=== PATIENT | female | born 1960 | race Two or more races ===

== ENCOUNTER → 2024-06-01 | Outpatient (CLI) | payer MEDICARE, MEDICAID, SELFPAY ==
--- NOTE | 2024-06-01 08:36 | XR_ITS ---
Examination: Thoracic spine 3 views Technique one AP lateral coned lateral upper dorsal spine 3 views Exam date and time: June 01, 2024 0850 hours INDICATIONS: Mid back pain for months. FINDINGS: Prominent osteopenia Moderate diffuse thoracic degenerative disease Prominent thoracic spondylosis No acute fracture IMPRESSION: Moderate diffuse thoracic degenerative disc disease
--- NOTE | 2024-06-01 08:36 | XR_ITS ---
Examination: Cervical spine 3 views TECHNIQUE: AP lateral coned AP odontoid cervical spine 3 views Exam date and time: June 01, 2024 0846 hours INDICATIONS: Left-sided neck pain beginning 4 months ago FINDINGS: 3 mm anterolisthesis C3 on C4 Moderate degenerative disc disease C4-C5, C6-C7 No cervical fracture Intact odontoid Soft tissue vascular carotid calcification IMPRESSION: Moderate degenerative disc disease C4-C5, C6-C7, consider oblique film cervical spine follow-up
== END | disposition home or self-care (01) ==
PROVIDERS: PCP Physician Assistant; Referring Provider Physician Assistant; Visit Provider Physician Assistant
DX: M50.321 Other cervical disc degeneration at C4-C5 level (principal); M51.34 Other intervertebral disc degeneration, thoracic region
CPT/HCPCS: 72040; 72070

== ENCOUNTER 2024-06-14 11:00 | Outpatient (RCR) | payer MEDICARE, MEDICAID, SELFPAY ==
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
== END 2024-06-27 23:59 | disposition home or self-care (01) ==
LOC: CPTX 11:00
PROVIDERS: PCP Orthopaedic Surgery Orthopaedic Trauma; Referring Provider Orthopaedic Surgery Orthopaedic Trauma; Visit Provider Orthopaedic Surgery Orthopaedic Trauma
DX: M25.512 Pain in left shoulder (principal); R53.1 Weakness; Z96.612 Presence of left artificial shoulder joint
CPT/HCPCS: 97162

== ENCOUNTER 2024-07-27 10:00 | Outpatient (RCR) | payer MEDICARE, MEDICAID, SELFPAY ==
--- NOTE | 2024-07-18 10:53 | PT.ODAYNRPT ---
PT Outpatient Daily Note OP Daily Note Outpatient Physical Therapy Treatment Date: 07/18/24 Visit Reasons: Pain in left shoulder Subjective: Pt c/o weak and stiff shoulder. Pt mentioned that she uses tries to use her shoulder as best she can but still notices it is weak. Objective: Please see flow sheet for ther ex list. Assessment: Pt demonstrates upper trap recruitment with AAROM in flexion and abduction, cues for correction. Plan: Continue with POC. Length of Time (minutes) of Treatment: 30 Minutes Procedure Charges Therapeutic Exercise 30 minutes: Yes
--- NOTE | 2024-07-20 10:48 | PT.ODAYNRPT ---
PT Outpatient Daily Note OP Daily Note Outpatient Physical Therapy Treatment Date: 07/20/24 Visit Reasons: Pain in left shoulder Subjective: A little L shoulder soreness after last visit Objective: See F/S for therex Assessment: Limited ER ROM and strength of L shoulder Plan: Continue per POC Length of Time (minutes) of Treatment: 30 Minutes Procedure Charges Therapeutic Exercise 30 minutes: Yes
--- NOTE | 2024-07-25 10:50 | PT.ODAYNRPT ---
PT Outpatient Daily Note OP Daily Note Outpatient Physical Therapy Treatment Date: 07/25/24 Visit Reasons: Pain in left shoulder Subjective: Pt reports progress is slow with R shoulder. Objective: Please see flow sheet for ther ex list. Assessment: Pt demonstrates poor cuff firing in external rotation. AAROM activities completed within available ROM. Plan: Continue with POC., Length of Time (minutes) of Treatment: 30 Minutes Procedure Charges Therapeutic Exercise 30 minutes: Yes
--- NOTE | 2024-07-27 11:46 | PT.ODAYNRPT ---
PT Outpatient Daily Note OP Daily Note Outpatient Physical Therapy Treatment Date: 07/27/24 Visit Reasons: Pain in left shoulder Subjective: A little L shoulder soreness after last visit Objective: See F/S for therex Assessment: Limited ER ROM and strength of L shoulder Plan: Continue per POC Length of Time (minutes) of Treatment: 30 Minutes Procedure Charges Therapeutic Exercise 30 minutes: Yes
== END 2024-07-28 23:59 | disposition home or self-care (01) ==
LOC: CPTX 10:00
PROVIDERS: PCP Orthopaedic Surgery Orthopaedic Trauma; Referring Provider Orthopaedic Surgery Orthopaedic Trauma; Visit Provider Orthopaedic Surgery Orthopaedic Trauma
DX: M25.512 Pain in left shoulder (principal); R53.1 Weakness; Z96.612 Presence of left artificial shoulder joint; I10 Essential (primary) hypertension
CPT/HCPCS: 97110

== ENCOUNTER 2024-08-10 10:30 | Outpatient (RCR) | payer MEDICARE, MEDICAID, SELFPAY ==
--- NOTE | 2024-08-01 11:16 | PT.ODAYNRPT ---
PT Outpatient Daily Note OP Daily Note Outpatient Physical Therapy Treatment Date: 08/01/24 Visit Reasons: Pain in left shoulder Subjective: A little L shoulder soreness after last visit Objective: See F/S for therex Assessment: Limited ER ROM and strength of L shoulder Plan: Continue per POC Length of Time (minutes) of Treatment: 30 Minutes Procedure Charges Therapeutic Exercise 30 minutes: Yes
--- NOTE | 2024-08-08 11:21 | PT.ODAYNRPT ---
PT Outpatient Daily Note OP Daily Note Outpatient Physical Therapy Treatment Date: 08/08/24 Visit Reasons: Pain in left shoulder Subjective: A little L shoulder soreness after last visit Objective: See F/S for therex Assessment: Limited ER ROM and strength of L shoulder Plan: Continue per POC Length of Time (minutes) of Treatment: 30 Minutes Procedure Charges Therapeutic Exercise 30 minutes: Yes
--- NOTE | 2024-08-10 11:21 | PT.ODAYNRPT ---
PT Outpatient Daily Note OP Daily Note Outpatient Physical Therapy Treatment Date: 08/10/24 Visit Reasons: Pain in left shoulder Subjective: Pt reports L shoulder is progressing but slowly. Pt notices she can perform ER HEP with better technique since her external rotation has improved some. Objective: Please see flow sheet for ther ex list. Assessment: Pt ROM continues to improve but slowly. Pt replicates good technique with Er door stretch indicating compliance with HEP. Plan: Continue with POC. Length of Time (minutes) of Treatment: 30 Minutes Procedure Charges Therapeutic Exercise 30 minutes: Yes
== END 2024-08-25 23:59 | disposition home or self-care (01) ==
LOC: CPTX 10:30
PROVIDERS: PCP Orthopaedic Surgery Orthopaedic Trauma; Referring Provider Orthopaedic Surgery Orthopaedic Trauma; Visit Provider Orthopaedic Surgery Orthopaedic Trauma
DX: M25.512 Pain in left shoulder (principal); R53.1 Weakness; Z96.612 Presence of left artificial shoulder joint
CPT/HCPCS: 97110

== ENCOUNTER 2024-10-17 11:17 | Emergency (ER) | payer MEDICARE, MEDICAID, SELFPAY ==
[2024-10-17 11:58] VITALS: BP 172/85; PULSE 69; RESP 19; TEMP 36.9; O2SAT 96
--- NOTE | 2024-10-17 12:09 | XR_ITS ---
Examination: CT brain head without contrast. 2-D sagittal coronal reconstructions Date and time of exam:October 17, 2024 1414 hours INDICATIONS: Generalized head pain and dizziness today CTDI: vol (mGy):48.3 DLP: (mGycm):968 Technique: Multiple CT axial sections of the brain have been obtained, 5 mm slice thickness. Contrast has not been administered. 2-D sagittal, coronal reconstructions have been obtained Low dose protocols were performed. One or more of the following dose reduction techniques were used; automated exposure control, adjustment of the mA and/or KV according to patient size, use of iterative reconstruction technique. Findings: No significant ventricular enlargement. Intra-axial or extra-axial hemorrhage density is not seen. No mass effect or midline shift Basal cisterns are not remarkable. Fourth ventricle is midline. Cranial vault intact. Impression: Negative for acute hemorrhage, mass effect or midline shift Advise clinical correlation follow-up accordingly
[2024-10-17] MEDS: DiphenhydrAMINE 25 MG CAPSULE PO (12:19)
[2024-10-17] MEDS: SUMAtriptan INJ 6 MG/0.5 ML VIAL SC (12:19)
--- NOTE | 2024-10-17 12:19 | PD.EDHA ---
ED Headache RME/HPI General Chief Complaint: Headache Stated Complaint: SEVERE HEADACHE SINCE 7AM, NAUSEA, CHILLS Time Seen by Provider: 10/17/24 12:10 Source: patient Arrival date/time: 10/17/24 11:17 63-year-old female with a history of hypertension presents to the emergency room with a chief complaint of a 10 out of 10 headache that began this morning at 7 AM Mode of arrival: ambulatory Limitations: no limitations Related Data Home Medications ?Medication ?Instructions ?Recorded ?Confirmed levothyroxine 25 mcg tablet 25 mcg PO QDAY 05/01/21 01/15/22 lisinopril 40 mg tablet 40 mg PO QDAY 05/01/21 01/15/22 amitriptyline 10 mg tablet 10 mg PO QDAY 01/15/22 01/15/22 amlodipine 2.5 mg tablet 2.5 mg PO QDAY 01/15/22 01/15/22 hydrocodone 7.5 mg-acetaminophen 1 tab PO Q8H PRN Pain 01/15/22 01/15/22 325 mg tablet metoprolol succinate 50 mg 50 mg PO QDAY 01/15/22 01/15/22 tablet,extended release 24 hr acetaminophen 300 mg-codeine 15 mg 1 tab PO Q4H PRN Pain 04/10/22 04/10/22 tablet Previous Rx's ?Medication ?Instructions ?Recorded acetaminophen-caffeine 500 mg-65 1 tab PO Q8H PRN pain #30 tabs 10/17/24 mg tablet (Excedrin Tension Headache) Allergies Allergy/AdvReac Type Severity Reaction Status Date / Time No Known Allergies Allergy Verified 10/17/24 11:22 Review of Systems Review of Systems Systems Reviewed: All systems reviewed, normal except as documented Constitutional Constitutional: Reports system reviewed and no additional complaints, except as documented, Denies fatigue, Denies fever(s), Reports headache(s) and Reports weakness Eyes Eyes: Reports system reviewed and no additional complaints, except as documented, Denies blurry vision and Denies change in vision ENT Ears, Nose, Mouth, and Throat: Reports system reviewed and no additional complaints, except as documented, Denies otalgia, Reports headache(s), Denies nasal congestion, Denies throat swelling and Denies vertigo Cardiovascular Cardiovascular: Reports system reviewed and no additional complaints, except as documented, Denies chest pain, Denies dyspnea and Denies dyspnea on exertion Respiratory Respiratory: Reports system reviewed and no additional complaints, except as documented, Denies chest congestion, Denies cough, Denies dyspnea, Denies dyspnea on exertion and Denies wheezing Gastrointestinal Gastrointestinal: Reports system reviewed and no additional complaints, except as documented, Denies abdominal pain, Denies cramping, Denies nausea and Denies vomiting Genitourinary Genitourinary: Reports system reviewed and no additional complaints, except as documented Musculoskeletal Musculoskeletal: Reports system reviewed and no additional complaints, except as documented and Denies back pain Integumentary/Breasts Skin/Breast: Reports system reviewed and no additional complaints, except as documented and Denies wounds Neurologic Neurologic: Reports system reviewed and no additional complaints, except as documented, Denies confusion, Reports headache(s), Denies lack of coordination, Denies vertigo and Reports weakness Psychiatric Psychiatric: Reports system reviewed and no additional complaints, except as documented, Denies anxiety, Denies confusion, Denies depression, Denies paranoia, Denies suicidal ideation and Denies tactile hallucinations Endocrine Endocrine: Reports system reviewed and no additional complaints, except as documented and Denies fatigue Hematologic/Lymphatic Hematologic/Lymphatic: Reports system reviewed and no additional complaints, except as documented and Denies lymphadenopathy Allergic/Immunologic Allergic/Immunologic: Reports system reviewed and no additional complaints, except as documented, Denies throat swelling, Denies urticaria and Denies wheezing ED Exam General Limitations: Present no limitations General appearance: Present alert and in no apparent distress Head Head exam: Present atraumatic, normocephalic and normal inspection Eye Eye exam: Present normal appearance, PERRL and EOMI ENT ENT exam: Present normal exam, normal oropharynx and mucous membranes moist Neck Neck exam: Present normal inspection, full ROM and trachea midline Chest Chest inspection: Present normal inspection and symmetric chest wall rise Respiratory Respiratory exam: Present normal lung sounds bilaterally Cardiovascular Cardiovascular exam: Present regular rate, normal rhythm and normal heart sounds Abdominal Exam Abdominal exam: Present soft and normal bowel sounds Extremities Exam Extremities exam: Present normal inspection and full ROM Back Exam Back exam: Present normal inspection and full ROM Neurological Exam Neurological exam: Present alert, oriented X3 and CN II-XII intact Psychiatric Psychiatric exam: Present normal affect and normal mood Skin Skin exam: Present warm, dry, intact and normal color Course Quality Measures none Orders Category Date Time Status CT head/brain wo con Stat Exams 10/17/24 12:09 Completed CBC Stat Lab 10/17/24 12:26 Completed CMP [Comprehensive Metabolic Panel] Stat Lab 10/17/24 12:26 Completed DiphenhydrAMINE [Benadryl] Med 10/17/24 12:09 Discontinued 25 mg PO X1 ONE SUMAtriptan INJ [Imitrex Inj] Med 10/17/24 12:09 Discontinued 6 mg SC X1 ONE Vital Signs Vital signs: Vital Signs Temperature 98.5 F 10/17/24 11:58 Pulse Rate 69 10/17/24 11:58 Respiratory Rate 19 10/17/24 11:58 Blood Pressure 172/85 H 10/17/24 11:58 Pulse Oximetry (%) 96 10/17/24 11:58 Oxygen Delivery Method Room Air 10/17/24 11:58 O2 saturation is 96% within normal limits Headache MDM Narrative MDM Narrative:: 63-year-old female with a history of hypertension presents to the emergency room with a chief complaint of a 10 out of 10 headache that began this morning at 7 AM Patient is hemodynamically stable and in no apparent distress. The patient is not tachycardic not tachypneic and afebrile Physical examination shows a normal neurological exam. The patient is a GCS of 15 she is alert and oriented x 3 pupils are PERRLA EOMs are intact The pain and tenderness began this morning at [address] of the head and brain was completed and was negative for any acute findings. CBC CMP were negative for any acute findings. Patient was given medication for headache with significant improvement to her symptoms Patient was discharged and educated to follow-up with primary care provider in the next 24 to 48 hours and return to the emergency room for any evidence of worsening signs or symptoms Patient data External records reviewed:: [facility] previous records Clinical information provided by:: patient Social determinants that could affect healthcare access:: none Patient has the following chronic illnesses:: Hypertension How is presenting disease/condition affected by chronic disease/condition?: exacerbated by Evaluation data The following diagnostics were reviewed and interpreted by me:: lab results and radiology exam(s) Lab and/or radiology exams considered but not ordered:: Labs radiology exams considered and ordered Interpretation Summary: CT of the head and brain-Findings: No significant ventricular enlargement. Intra-axial or extra-axial hemorrhage density is not seen. No mass effect or midline shift Basal cisterns are not remarkable. Fourth ventricle is midline. Cranial vault intact. Impression: Negative for acute hemorrhage, mass effect or midline shift Advise clinical correlation follow-up accordingl Medications / Prescriptions Medications or Prescriptions considered but not ordered:: Medication given Medication administrations:: Medication Administration History Discontinued Medications Diphenhydramine HCl (Diphenhydramine 25 Mg Capsule) 25 mg PO X1 ONE Stop: 10/17/24 12:10 Last Admin: 10/17/24 12:19 Dose: 25 mg Documented By: ANTON Sumatriptan Succinate (Sumatriptan Inj 6 Mg/0.5 Ml Vial) 6 mg SC X1 ONE Stop: 10/17/24 12:10 Last Admin: 10/17/24 12:19 Dose: 6 mg Documented By: ANTON Medication given Consultations Consultation(s) initiated? (list below): No Diagnosis Differential diagnosis headache: migraine, tension headache, subarachnoid hemorrhage and headache Most likely diagnosis given after review of the tests above:: Headache Admission Indicated Admission indicated?: not indicated Admission Request Was there a request for admission?: No Disposition Plan Disposition Plan: Discharge Discharge Attestation Discharge Attestation: The patient and all family members were given an opportunity to ask questions and understood the discharge instructions. Discharge instructions specifically effects, indications for sooner follow up or return to the emergency department, and the expected course of current diagnosis. Patient condition: Stable Discharge Plan Plan Patient Disposition: HOME (Self Care) Disposition Comment: Stable Prescriptions/Referrals Prescriptions/Med Rec: New Excedrin Tension Headache 500-65 mg tablet 1 tab PO Q8H PRN (Reason: pain) Qty: 30 0RF No Action metoprolol succinate 50 mg Tablet Extended Release 24 Hr 50 mg PO QDAY amlodipine 2.5 mg Tablet 2.5 mg PO QDAY amitriptyline 10 mg Tablet 10 mg PO QDAY hydrocodone-acetaminophen 7.5-325 mg Tablet 1 tab PO Q8H PRN (Reason: Pain) levothyroxine 25 mcg Tablet 25 mcg PO QDAY lisinopril 40 mg Tablet 40 mg PO QDAY acetaminophen-codeine [Tylenol-Codeine #2] 300-15 mg Tablet 1 tab PO Q4H PRN (Reason: Pain) Referrals: No Primary/Family,Physician [Primary Care Provider] - In 1 week Problem List Clinical Impression: Headache Patient/Caregiver Discharge Instructions Additional Instructions: Por favor, consulte con lindsey m?dico de cabecera en las pr?ximas 24 a 48 horas. Se le realiz? stella tomograf?a computarizada de cr?samir y cerebro, la cual result? negativa para cualquier hallazgo alexander. Lindsey an?lisis de bailey result? negativo para cualquier hallazgo alexander. Se le envi? un medicamento a lindsey farmacia para aliviar dede delma de mirtha. Si observa cualquier signo de empeoramiento de los signos o s?ntomas, acuda a urgencias de inmediato. Print Language: [place] Stand Alone Forms: Damari Award Info., Patient Portal Info Letter PA/MARKET DEVELOPMENT MANAGER Supervising Physician PA/MARKET DEVELOPMENT MANAGER Supervising Physician: Dr. Nieves
[2024-10-17 12:51] LABS: Basophils % (Auto) 0 % (0-2.5); Eosinophils # (Auto) 0.1 Thou/mm3 (0.0-0.5); Eosinophils % (Auto) 2 % (0-10); Hematocrit 36.8 % (36.0-46.0); Hemoglobin 12.5 g/dL (12.0-16.0); Immature Granulocytes % (Auto) 1 % (0-0); Immature Granulocytes Auto 0.04 Thou/mm3 (0.00-0.00); Lymphocytes # (Auto) 1.6 Thou/mm3 (1.0-4.8); Lymphocytes % (Auto) 21 % (10-50); Mean Corpuscular Hemoglobin 31.3 pg (25.0-35.0); Mean Corpuscular Volume 92 fL (80-100); Monocytes # (Auto) 0.4 Thou/mm3 (0.0-0.8); Monocytes % (Auto) 5 % (0-12); Neutrophils # (Auto) 5.7 Thou/mm3 (1.8-7.7); Neutrophils % (Auto) 72 % (37-80); Nucleated Red Blood Cell % 0 /100 WBC (0); Platelet Count 315 Thou/mm3 (140-440); White Blood Count 7.8 Thou/mm3 (3.6-11.0)
[2024-10-17 13:21] LABS: Alanine Aminotransferase 17 U/L (10-49); Albumin, Serum 4.4 gm/dL (3.4-4.8); Albumin/Globulin Ratio 1.4 (1.2-2.2); Alkaline Phosphatase 94 U/L (46-116); Anion Gap 5 (7-16); Aspartate Amino Transferase 20 U/L (0-34); BUN/Creatinine Ratio 23 Ratio (12-20); Bilirubin,Total 0.5 mg/dL (0.3-1.2); Blood Urea Nitrogen 16 mg/dL (9-23); Calcium 9.5 mg/dL (8.3-10.6); Calcium (Corrected) 9.5 mg/dL (8.5-10.1); Carbon Dioxide 27.8 mMol/L (20.0-31.0); Chloride 102 mMol/L (98-107); Creatinine (Component) 0.7 mg/dL (0.6-1.3); Globulin 3.1 gm/dL (2.3-3.5); Glucose 130 mg/dL (74-106); Osmolality,Calculated 273 (275-295); Sodium 135 mMol/L (136-145); Total Protein 7.5 gm/dL (5.7-8.2); eGFR > 60 See Note
== END 2024-10-17 15:30 | disposition home or self-care (01) ==
PROVIDERS: Nurse Practitioner Family; Emergency Provider Family Medicine
DX: R51.9 Headache, unspecified (principal); R42 Dizziness and giddiness
CPT/HCPCS: 36415; 70450; 80053; 85025; 96372; 99284; J3030; A9270

== ENCOUNTER → 2024-12-04 | Outpatient (CLI) | payer MEDICARE, MEDICAID, SELFPAY ==
--- NOTE | 2024-12-04 12:48 | XR_ITS ---
Examination: Abdomen AP single view Technique: AP portable supine abdomen, single view Exam date and time: December 04, 2024 12:51 PM INDICATIONS: Upper abdominal pain today. FINDINGS: Moderate air and stool throughout the colon No obstruction No free air IMPRESSION: Nonobstructive bowel gas pattern
== END | disposition home or self-care (01) ==
PROVIDERS: PCP Physician Assistant; Referring Provider Physician Assistant; Visit Provider Physician Assistant
DX: R10.13 Epigastric pain (principal)
CPT/HCPCS: 74018

== ENCOUNTER → 2025-02-05 | Outpatient (CLI) | payer MEDICARE, MEDICAID, SELFPAY ==
--- NOTE | 2025-02-05 11:15 | XR_ITS ---
Examination: Screening digital mammography, bilateral Computer aided detection 3-D breast Tomosynthesis, bilateral Date and time of exam: February 05, 2025 1101 hours Compared to mammograms dating to July 20, 2014 Indication: Screening Technique: Nonmagnified MLO, CC views of the breasts to been obtained, reconstructed from 3-D Tomosynthesis images. R2 computer aided detection program utilized for evaluation of suspicious masses and/or abnormal calcifications. 3-D Tomosynthesis images obtained. Findings: Scattered areas of fibroglandular density. Benign calcifications. No suspicious masses Impression: BI-RADS Category 1: Negative study Recommend yearly follow-up mammography
== END | disposition home or self-care (01) ==
LOC: CDIM 10:48
PROVIDERS: Referring Provider Physician Assistant; Visit Provider Physician Assistant
DX: Z12.31 Encounter for screening mammogram for malignant neoplasm of breast (principal); R92.323 Mammographic fibroglandular density, bilateral breasts; R92.1 Mammographic calcification found on diagnostic imaging of breast
CPT/HCPCS: 77063; 77067

== ENCOUNTER 2025-04-03 08:16 | Outpatient (RCR) | payer MEDICARE, MEDICAID, SELFPAY ==
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
== END 2025-04-27 23:59 | disposition home or self-care (01) ==
LOC: CPTX 08:16
PROVIDERS: PCP Psychiatry & Neurology Neurology; Referring Provider Psychiatry & Neurology Neurology; Visit Provider Psychiatry & Neurology Neurology
DX: M54.12 Radiculopathy, cervical region (principal); I10 Essential (primary) hypertension
CPT/HCPCS: 97162

== ENCOUNTER → 2025-04-13 | Outpatient (CLI) | payer MEDICARE, MEDICAID, SELFPAY ==
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
== END | disposition home or self-care (01) ==
LOC: SMRI 14:27
PROVIDERS: PCP Physician Assistant; Referring Provider Psychiatry & Neurology Neurology; Visit Provider Psychiatry & Neurology Neurology
DX: M50.31 Other cervical disc degeneration, high cervical region (principal); M48.02 Spinal stenosis, cervical region; M25.78 Osteophyte, vertebrae
CPT/HCPCS: 72141

== ENCOUNTER 2025-05-22 11:00 | Outpatient (RCR) | payer MEDICARE, MEDICAID, SELFPAY ==
--- NOTE | 2025-05-14 14:49 | PT.ODAYNRPT ---
PT Outpatient Daily Note OP Daily Note Outpatient Physical Therapy Treatment Date: 05/14/25 Visit Reasons: CERVICAL RADICULOPATHY Subjective: Continued neck pain in the morning when she wakes up worse on the R side Objective: See f/S for therex MT: STM C/S paraspinals x7' Mechanical traction x7' at 12 lbs Assessment: Moderate TTP of C/S paraspinals with MT Plan: Continue per POC Length of Time (minutes) of Treatment: 30 Minutes Procedure Charges Therapeutic Exercise 30 minutes: Yes
--- NOTE | 2025-05-17 12:04 | PT.ODAYNRPT ---
PT Outpatient Daily Note OP Daily Note Outpatient Physical Therapy Treatment Date: 05/17/25 Visit Reasons: CERVICAL RADICULOPATHY Subjective: Continued neck pain in the morning when she wakes up worse on the R side Objective: See f/S for therex MT: STM C/S paraspinals x7' Assessment: Moderate TTP of C/S paraspinals with MT Plan: Continue per POC Length of Time (minutes) of Treatment: 30 Minutes Procedure Charges Therapeutic Exercise 30 minutes: Yes
--- NOTE | 2025-05-22 13:41 | PT.ODAYNRPT ---
PT Outpatient Daily Note OP Daily Note Outpatient Physical Therapy Treatment Date: 05/22/25 Visit Reasons: CERVICAL RADICULOPATHY Subjective: Continued neck pain in the morning when she wakes up worse on the R side Objective: See f/S for therex MT: STM C/S paraspinals x7' Assessment: Moderate TTP of C/S paraspinals with MT Plan: Continue per POC Length of Time (minutes) of Treatment: 30 Minutes Procedure Charges Therapeutic Exercise 30 minutes: Yes
== END 2025-05-27 23:59 | disposition home or self-care (01) ==
LOC: CPTX 11:00
PROVIDERS: PCP Psychiatry & Neurology Neurology; Referring Provider Psychiatry & Neurology Neurology; Visit Provider Psychiatry & Neurology Neurology
DX: M54.12 Radiculopathy, cervical region (principal)
CPT/HCPCS: 97110

== ENCOUNTER 2025-06-06 08:30 | Outpatient (RCR) | payer MEDICARE, MEDICAID, SELFPAY ==
--- NOTE | 2025-05-29 16:10 | PT.ODAYNRPT ---
PT Outpatient Daily Note OP Daily Note Outpatient Physical Therapy Treatment Date: 05/29/25 Visit Reasons: cervical radiculopathy Subjective: Pt reports neck is doing ok, does not feel progress at this time. Pt c/o cold weather making symptoms worse. Objective: Please see flow sheet for ther ex list. Assessment: Pt instructed on cervical retraction, cues to avoid cervical flexion during exercise, pt complied. Plan: Continue with poC. Length of Time (minutes) of Treatment: 30 Minutes LICENSED MASSAGE THERAPIST Service Modifier Method I: Divide the number of min of care provided by the LICENSED MASSAGE THERAPIST/ALEKSANDAR by the total min of care provided then multiply by 100. If greater than 11 percent modifier is required. Method II: Divide the total time of care provided to patient by 10 (round to the nearest whole number) and add 1 min. to set the minimum time requirement. If treatment total was 60 min., then 10% of 6 min PT CQ modifier applied: CQ Modifier applied Procedure Charges Therapeutic Exercise 30 minutes: Yes
--- NOTE | 2025-06-04 14:36 | PTNOTE_ITS ---
PT Outpatient Daily Note OP Daily Note Outpatient Physical Therapy Treatment Date: 06/04/25 Visit Reasons: cervical radiculopathy Subjective: Pt reports slow to no progress with neck pain. Feels since the weather is cold neck has been hurting more. Objective: Please see flow sheet for ther ex list. Assessment: Slow progress with symptoms delaying interventions progression. Plan: Continue with poC. Length of Time (minutes) of Treatment: 30 Minutes EXPORT SALES ASSISTANT Service Modifier Method I: Divide the number of min of care provided by the EXPORT SALES ASSISTANT/ALEKSANDAR by the total min of care provided then multiply by 100. If greater than 11 percent modifier is required. Method II: Divide the total time of care provided to patient by 10 (round to the nearest whole number) and add 1 min. to set the minimum time requirement. If treatment total was 60 min., then 10% of 6 min PT CQ modifier applied: CQ Modifier applied Procedure Charges Therapeutic Exercise 30 minutes: Yes
--- NOTE | 2025-06-06 09:16 | PT.ODAYNRPT ---
PT Outpatient Daily Note OP Daily Note Outpatient Physical Therapy Treatment Date: 06/06/25 Visit Reasons: cervical radiculopathy Subjective: Pt reports neck is the same, feels a little better after PT sessions for a few hours but overall feels the neck continues to hurt the same. Objective: Please see flow sheet for ther ex list. Assessment: Progressing interventions as tolerated, pt continues to have pain. Plan: Continue with pOC. Length of Time (minutes) of Treatment: 30 Minutes MARKETING STRATEGY MANAGER Service Modifier Method I: Divide the number of min of care provided by the MARKETING STRATEGY MANAGER/READING SPECIALIST by the total min of care provided then multiply by 100. If greater than 11 percent modifier is required. Method II: Divide the total time of care provided to patient by 10 (round to the nearest whole number) and add 1 min. to set the minimum time requirement. If treatment total was 60 min., then 10% of 6 min PT CQ modifier applied: CQ Modifier applied Procedure Charges Therapeutic Exercise 30 minutes: Yes
== END 2025-06-27 23:59 | disposition home or self-care (01) ==
LOC: CPTX 08:30
PROVIDERS: PCP Psychiatry & Neurology Neurology; Referring Provider Psychiatry & Neurology Neurology; Visit Provider Psychiatry & Neurology Neurology
DX: M54.12 Radiculopathy, cervical region (principal); I10 Essential (primary) hypertension
CPT/HCPCS: 97110

== ENCOUNTER 2025-06-10 17:11 | Emergency (ER) | payer MEDICARE, MEDICAID, SELFPAY ==
[2025-06-10 17:11] VITALS: PULSE 72; RESP 20; O2SAT 97
[2025-06-10 17:15] VITALS: BP 165/98; PULSE 64; RESP 18; TEMP 36.8; O2SAT 99
--- NOTE | 2025-06-10 17:57 | XR_ITS ---
EXAMINATION: PA lateral chest 2 views TECHNIQUE: Upright PA lateral chest 2 views Date and time: June 10, 2025, 1808 hours, comparison January 29, 2005 INDICATIONS: Injury to the spine today, chest pain FINDINGS: Normal heart size No pneumothorax Old left-sided rib fractures No acute thoracic fracture Prominent thoracic spondylosis Moderate diffuse thoracic disc narrowing IMPRESSION: No pneumothorax pulmonary contusion or hemothorax No acute thoracic fracture Moderate diffuse thoracic disc narrowing
--- NOTE | 2025-06-10 17:57 | XR_ITS ---
EXAMINATION: Thoracic spine 3 views TECHNIQUE: AP lateral coned lateral upper dorsal spine 3 views Date and time: June 10, 2025, 1818 hours, comparison June 01, 2024 INDICATIONS: Injury to the back today, back pain. FINDINGS: No acute thoracic fracture Prominent thoracic spondylosis Moderate diffuse thoracic degenerative disc disease Moderate degenerative disc disease C5-C6 IMPRESSION: No acute thoracic fracture Moderate diffuse thoracic degenerative disc disease
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
[2025-06-10 18:03] VITALS: BMI 35.0
[2025-06-10] MEDS: KETOROLAC INJ 30 MG/ML VIAL 15 MG IM (18:30)
[2025-06-10 19:47] VITALS: BP 121/82; PULSE 61; RESP 18; TEMP 36.4; O2SAT 97
[2025-06-10 19:49] VITALS: BP 130/72; PULSE 72; RESP 16; TEMP 36.6; O2SAT 98
== END 2025-06-10 19:50 | disposition home or self-care (01) ==
LOC: SERX 19:42
PROVIDERS: Emergency Provider Emergency Medicine; PCP Physician Assistant
DX: S29.012A Strain of muscle and tendon of back wall of thorax, initial encounter (principal); S20.219A Contusion of unspecified front wall of thorax, initial encounter; V89.2XXA Person injured in unspecified motor-vehicle accident, traffic, initial encounter
CPT/HCPCS: 71046; 72072; 96372; 99283; J1885; A9270